=== PATIENT | female | born 1955 | race Caucasian/White ===

== ENCOUNTER → 2021-04-02 08:36 | Outpatient (CLI) | payer OTHER, SELFPAY ==
--- NOTE | 2021-04-02 | DI.US.S_ITS ---
LIMITED ULTRASOUND OF LEFT BREAST AND AXILLA: 04/02/2021 CLINICAL: Patient returns today to follow up an asymmetry in the left breast. Comparison is made to exams dated: 02/16/2020 mammogram, 02/16/2020 ultrasound, 02/21/2019 ultrasound, 08/20/2018 ultrasound, 08/20/2018 mammogram - outside location, and 04/02/2021 mammogram - [facility]. Color flow ultrasound of the left breast axilla was performed. Vázquez scale images of the real-time examination were reviewed. There is a 0.6 cm x 0.5 cm x 0.7 cm oval cyst with a septated internal wall in the left breast central to the nipple in the retroareolar region. This oval cyst is hypoechoic with posterior acoustic enhancement. This correlates as an incidental finding but was not seen on the prior mammogram. Color flow imaging demonstrates that there is no vascularity present. The mass in the left breast at 9 o'clock middle depth is no longer seen. No significant abnormalities were seen sonographically in the left axilla. IMPRESSION: PROBABLY BENIGN The 0.6 cm x 0.5 cm x 0.7 cm oval cyst in the left breast central to the nipple in the retroareolar region is consistent with a complicated cyst and is probably benign. A follow-up left ultrasound in 6 months is recommended to demonstrate stability. This exam was interpreted at Station ID: [id number]. Electronically Signed By: Fly [email or web address]/[email or web address]:04/02/2021 10:43:02 letter sent: Followup Recommended Ultrasound BI-RADS: 3 Probably benign
--- NOTE | 2021-04-02 | DI.MG.S_ITS ---
BILATERAL DIGITAL DIAGNOSTIC MAMMOGRAM 3D/2D: 04/02/2021 CLINICAL: 1 year follow up per prior exam. Comparison is made to exams dated: 02/16/2020 mammogram, 08/20/2018 mammogram, and 08/11/2018 mammogram - outside location. The tissue of both breasts is heterogeneously dense. This may lower the sensitivity of mammography. There is a 3 mm mass in the left breast at 9 o'clock middle depth. This is less prominent. No other significant masses, calcifications, or other findings are seen in either breast. IMPRESSION: INCOMPLETE: NEEDS ADDITIONAL IMAGING EVALUATION The 3 mm mass in the left breast is indeterminate. An ultrasound is recommended. This exam was interpreted at Station ID: [id number]. NOTE: For mammograms, a report in lay terms will be sent to the patient. Approximately 15% of breast malignancies will not be visualized mammographically. In the management of a palpable breast mass, a negative mammogram must not discourage biopsy of a clinically suspicious lesion. Electronically Signed By: Fly lozano/sarah:04/02/2021 10:38:55 ACR BI-RADS Category 0: Incomplete [id number]
== END ==
PROVIDERS: PCP Family Medicine; Referring Provider Family Medicine; Visit Provider Family Medicine
DX: N60.02 Solitary cyst of left breast (principal)
CPT/HCPCS: 76642; 77066; G0279